=== PATIENT | male | born 1965 | race Caucasian/White ===

== ENCOUNTER 2018-02-10 12:08 | Day surgery (SDC) | payer BC ==
[2018-02-06 10:47] VITALS: BMI 23.6
[~2018-02-10 12:08] MED LIST: LACTATED RINGERS 1,000 ML IV SCH
[2018-02-10] MEDS ORDERED: LIDOCAINE 1% 20 ML VIAL (10MG/ML) FOR IV START INTRADERMA ONE (12:31)
[2018-02-10 12:42] VITALS: TEMP 98.3
[2018-02-10] MEDS ORDERED: PROPOFOL 10 MG/ML 20 ML VIAL IV ONE (13:18)
--- NOTE | 2018-02-10 13:49 | P.PCN ---
Date of Procedure: 02/10/18 Procedure(s) Performed: Procedure: Total colonoscopy. Preoperative diagnosis: Screening for neoplasia. Postoperative diagnosis: Exam within normal limits. Preparation: HalfLytely prep. Sedation: Was provided by anesthesia. Brief clinical history: The patient is a 52-year-old male who is referred for this evaluation for screening for neoplasia age being his risk factor. He has no abdominal complaints, bleeding or anemia. No family history of colon cancer. This would be his first colonoscopy. Procedure: With the patient on his left lateral decubitus position and after informed consent and adequate sedation, the perianal area was inspected and it did not show any fissures or fistulas. There were no masses felt on digital rectal examination. The Olympus CFQ 160L video colonoscope was then inserted in the rectum in the usual fashion and advanced to the cecum. The preparation was good. The mucosa appeared healthy. No polyps or tumors were seen or any obvious diverticular disease or other pathology. I retroflexed the endoscope in the rectum before the endoscope was withdrawn. The patient tolerated the procedure well. Plan: The patient was reassured. He will follow up with you as planned and I recommended repeat exam in 10 years.
[2018-02-10 14:09] VITALS: BP 137/79; PULSE 60; RESP 18
== END 2018-02-10 14:21 | disposition home or self-care (01) ==
LOC: ORWHC2ENDO 12:08
DX: Z12.11 Encounter for screening for malignant neoplasm of colon (principal); K64.8 Other hemorrhoids; K21.9 Gastro-esophageal reflux disease without esophagitis; E07.9 Disorder of thyroid, unspecified; Z79.890 Hormone replacement therapy; Z91.013 Allergy to seafood; Z87.891 Personal history of nicotine dependence
CPT/HCPCS: J2704; G0121

== ENCOUNTER → 2023-01-08 | Outpatient (CLI) | payer OTHER ==
--- NOTE | 2023-01-09 06:51 | MR ---
EXAMINATION TYPE: MR shoulder RT wo con DATE OF EXAM: 01/08/2023 COMPARISON: None HISTORY: RT SHOULDER PAIN, INJURED -2021. Rotator cuff tear per order. TECHNIQUE: Multiplanar, multisequence imaging of the right shoulder is performed without contrast. FINDINGS: Rotator Cuff: Increased signal along the supraspinatus tendon with focal full-thickness tear at the a rticular surface measuring 13 mm AP diameter sagittal image 27 x 12 mm transversely coronal image 15. This is involving the entire tendon or near entire tendon with stump retraction by 1.0 cm. Mild incr eased signal in the infraspinatus tendon some adjacent fluid. Rotator cuff muscle bulk is preserved. Acromioclavicular Joint: Mildly widened at 8 mm without significant spurring. Distal acromion morphol ogy unremarkable. Glenohumeral Joint: Moderate size joint effusion with fluid extending into the acromioclavicular join t. No significant spurring. Narrowing is present greatest inferiorly. Labrum: The labrum appears grossly intact given limitation of non-arthrogram study. Biceps Tendon: The long head of biceps is in normal location within bicipital groove. Bone marrow signal: Heterogeneity consistent with red marrow reconversion. No suspicious edema. Other: No additional significant abnormality is appreciated. IMPRESSION: 1. Generalized tendinosis with Significant full-thickness tear of the distal supraspinatus tendon. Mo re mild tendinosis of the infraspinatus tendon without tear. 2. Degenerative changes at the glenohumeral and acromioclavicular joints as detailed above.
== END | disposition home or self-care (01) ==
LOC: RADMRIMAIN 15:26
PROVIDERS: ATTEND Family Medicine
DX: M75.111 Incomplete rotator cuff tear or rupture of right shoulder, not specified as traumatic (principal); M19.011 Primary osteoarthritis, right shoulder; M67.813 Other specified disorders of tendon, right shoulder